=== PATIENT | female | born 1950 | race Caucasian/White ===

== ENCOUNTER 2016-07-10 10:36 | Emergency (ER) | payer OTHER, MEDICARE ==
[~2016-07-10] VITALS: Ht 157.5 cm; Wt 68.0 kg
--- NOTE | 2016-07-10 11:08 | ED GI/GU/ABDOMINAL COMPLAINT ---
History of Present Illness General Chief Complaint: Nausea, Vomiting, Diarrhea Stated Complaint: ? STOMACH BUG SENT BY PMD Source: patient Exam Limitations: no limitations Allergies Coded Allergies: No Known Allergies (07/10/16) Reconcile Medications Ascorbate Calcium (Vitamin C) 500 MG TABLET 1 TAB PO DAILY VITAMIN SUPPORT ( Reported) Aspirin (Aspirin*) 81 MG TAB.CHEW 1 TAB PO DAILY HEART HEALTH (Reported) Atorvastatin Calcium 20 MG TABLET 1 TAB PO DAILY CHOLESTEROL (Reported) Biotin 5,000 MCG TAB.RAPDIS 1 TAB PO DAILY SUPPLEMENT (Reported) Calcium Carbonate/Vitamin D3 (Caltrate 600 + D Tablet) 600 MG-800 TABLET 1 TAB PO Q48 SUPPLEMENT (Reported) Celecoxib (Celebrex) 200 MG CAPSULE 1 CAP PO DAILY PRN PAIN (Reported) Cholecalciferol (Vitamin D3) (Vitamin D3) 400 UNIT TABLET 1 TAB PO DAILY VITAMIN SUPPORT (Reported) Cyanocobalamin (Vitamin B-12) 1,000 MCG TABLET 1 TAB PO DAILY VITAMIN SUPPORT (Reported) Folic Acid 0.4 MG TABLET 2 TAB PO DAILY VITAMIN SUPPORT (Reported) Hyoscyamine (Levsin) 0.125 MG TABLET 1 TAB PO Q4 PRN ABDOMINAL SPASMS Losartan Potassium 100 MG TABLET 1 TAB PO DAILY HEART (Reported) Magnesium Oxide (Magnesium) 250 MG TABLET 1 TAB PO TID SUPPLEMENT (Reported) Multivit-Min/FA/Lycopen/Lutein (Centrum Silver Tablet) 0.4 MG-300 MCG-250 MCG TABLET 1 TAB PO DAILY VITAMIN SUPPORT (Reported) [place]-3 Fatty Acids/Fish Oil (Fish Oil 1,000 MG Capsule) 340 MG-1,000 MG CAPSULE 1 CAP PO TID SUPPLEMENT (Reported) Ondansetron (Zofran Odt) 4 MG TAB.RAPDIS 1 TAB SL TID PRN NAUSEA Soy Isofl/Blk Coh/Gr Tea/[place]erba ([employer] Caplet) 56 MG-40 MG-130 MG TABLET 1 TAB PO DAILY HORMONE REPLACEMENT (Reported) Vitamin E (Dl,Tocopheryl Acet) (Vitamin E) 400 UNIT CAPSULE 1 CAP PO DAILY VITAMIN SUPPORT (Reported) Triage Note: PT PRESENTS TO ER C/O OF GENERALIZED ABDOMINAL PAIN AND N/V SINCE LAST NIGHT. PT STATES SHE CALLED HER PMD WHO SENT HER TO ER FOR EVAL Triage Nurses Notes Reviewed? yes ? N Is pt currently ? No Onset: Gradual Duration: day(s): (1) Timing: remote history Quality/Severity: ACHY Severity Numbers: 5 Location: generalized abdomen Radiation: no radiation Activities at Onset: none No Modifying Factors: none HPI: Patient is a 66-year-old female presenting to the emergency department with chief complaint of nausea vomiting diarrhea that started yesterday evening shortly after dinner. She reports that she felt nauseous all day, they went out to dinner, she had a meatand afterwards started having nausea vomiting and diarrhea. Positive chills. Complaining of generalized abdominal discomfort and achiness. Denies any specific pain. Denies any blood in the vomit or diarrhea. She reports that she is has had "many" episodes of diarrhea and vomiting, unsure how many exactly. No sick contacts or recent travel. No recent antibiotic use. Try taking Pepto-Bismol for her symptoms but that did not help. Her last time of emesis was approximately 1 hour prior to arrival. The same with an episode of diarrhea. Denies any urinary frequency urgency or dysuria. Positive urinary hesitancy since onset of these symptoms yesterday. (DENNISE PAYTON) Vital Signs & Intake/Output Vital Signs & Intake/Output Vital Signs Date Time Temp Pulse Resp B/P B/P Pulse O2 O2 Flow FiO2 Mean Ox Delivery Rate 07/10 1414 97.9 96 16 134/63 99 Room Air 07/10 1211 97 Room Air 07/10 1045 97.9 107 20 127/69 96 Room Air Past History Travel History Traveled to [place] past 21 day No Medical History Any Pertinent Medical History? see below for history Surgical History Surgical History: non-contributory Psychosocial History Tobacco Use: Quit >30 days ago Family History Hx Contributory? No (DENNISE PAYTON) Review of Systems Review of Systems Constitutional: Reports: malaise. Comments Review of systems: See HPI, All other systems negative. Constitutional, no weight loss HEENT: No visual changes no sore throat no congestion Cardiovascular: No chest pain ,palpitation , orthopnea or ankle swelling Skin, no jaundice no rashes Respiratory: No dyspnea cough sputum or hemoptysis GI: Positive nausea, vomiting, diarrhea : No dysuria No hematuria Muscle skeletal: no back pain, no neck pain, Neurologic: No numbness no confusion, no headache Psych: No stress anxiety or depression,. Heme/endocrine: No bruising no bleeding no polyuria or polydipsia Immunology: No splenectomy or history of AIDS (DENNISE PAYTON) Physical Exam Physical Exam General Appearance: well developed/nourished, no apparent distress, alert, awake , comfortable Gastrointestinal: normal bowel sounds, soft Comments: Well-developed well-nourished person in no acute distress HEENT: Pupils equally round and reactive to light and accommodation. Nose is atraumatic. External auditory canal and Tympanic membranes clear. Pharynx normal. No swelling or edema. Slightly dry oral mucosa. Neck: Supple, no lymphadenopathy, normal range of motion without pain or tenderness Back: Nontender, no CVA tenderness. Cardiovascular: Regular rate and rhythms no murmurs rubs or gallops, normal JVP Respiratory: Chest nontender. No respiratory distress.breath sounds clear to auscultation bilaterally Abdomen: Soft, minimal diffuse tenderness with light palpation, nondistended, no appreciable organomegaly. Normal bowel sounds. No ascites. Negative Rovsing and obturator. No right lower quadrant pain to palpation. Extremity: No edema Neuro: Alert oriented x3 Skin: No appreciable rash on exposed skin, skin is warm and dry. Psych: Mood and affect is normal, memory and judgment is normal. Core Measures ACS in differential dx? No Severe Sepsis Present: No Septic Shock Present: No (MIKIE CASSIDY,DENNISE) Progress Differential Diagnosis: UTI/pyelo, GASTROENTERITIS, FOOD POISONING, ELECTROLYTE ABNORMALITY, DEHYDRATION, ACUTE KIDNEY INJURY, uti, PANCREATITIS Plan of Care: Orders Procedure Date/time Status RAPID VIRAL INFLUENZA A 07/10 1247 Complete URINALYSIS 07/10 1108 Complete LIPASE 07/10 1108 Complete COMPREHENSIVE METABOLIC PANEL 07/10 1108 Complete CBC WITHOUT DIFFERENTIAL 07/10 1108 Complete AMYLASE 07/10 1108 Complete Laboratory Tests 07/10/16 1335: Urine Color YEL, Urine Clarity CLEAR, Urine pH 7.0, Ur Specific [place] 1.015, Urine Protein NEG, Urine Ketones NEG, Urine Nitrite NEG, Urine Bilirubin NEG, Urine Urobilinogen 0.2, Ur Leukocyte Esterase NEG, Ur Microscopic EXAM NOT REQUIRED, Urine Hemoglobin NEG, Urine Glucose NEG 07/10/16 1130: Anion Gap 12, Estimated GFR > 60, BUN/Creatinine Ratio 41.7 H, Glucose 133 H, Calcium 9.8, Total Bilirubin 0.6, AST 27, ALT 39, Alkaline Phosphatase 85, Total Protein 6.9, Albumin 4.2, Globulin 2.7, Albumin/Globulin Ratio 1.6, Amylase 79, Lipase 54, CBC w Diff NO MAN DIFF REQ, RBC 4.06 L, MCV 97.7, MCH 33.4 H, RDW 12.3, MPV 7.8, Gran % 95.9 H, Lymphocytes % 2.0 L, Monocytes % 1.7, Eosinophils % 0.3, Basophils % 0.1, Absolute Granulocytes 11.6 H, Absolute Lymphocytes 0.2 L, Absolute Monocytes 0.2, Absolute Eosinophils 0, Absolute Basophils 0, PUBS MCHC 34.2 Microbiology 07/10 1303 NASOPHARYN: Influenza Virus A & B Rapid Smear - COMP Diagnostic Imaging: Viewed by Me: CT Scan. Discussed w/RAD: CT Scan. Radiology Impression: PATIENT: PAOLA LOZANO PRESENT AGE: 66 PATIENT ACCOUNT NO: [id number] : 49 LOCATION: [facility] ORDERING PHYSICIAN: DENNISE CASSIDY SERVICE DATE: 07/10/16 EXAM TYPE: CAT - CT ABD & PELVIS W IV CONTRAST EXAMINATION: CT ABDOMEN AND PELVIS WITH CONTRAST CLINICAL INFORMATION: Nausea, vomiting and diarrhea. Abdominal pain. COMPARISON: CT abdomen and pelvis 07/19/2014. TECHNIQUE: Multidetector volumetric imaging was performed of the abdomen and pelvis before and after the IV administration of 94 mL of Optiray 320 intravenous contrast. Sagittal and coronal reformatted images were obtained on the technologist's workstation. DLP: 282 mGy-cm FINDINGS: LUNG BASES: No acute process seen in the lung bases. A 3.5 mm pulmonary nodule suspected right lower lobe, image 4 series 5. LIVER, GALLBLADDER, AND BILIARY TREE: The liver is mildly enlarged but normal shape, and attenuation. No focal hepatic lesion or biliary ductal dilatation is present. The gallbladder is unremarkable with no evidence of radiopaque gallstones, gallbladder wall thickening, or obvious pericholecystic inflammatory changes. PANCREAS: Unremarkable. SPLEEN: Unremarkable. ADRENAL GLANDS: Unremarkable. KIDNEYS AND URETERS: The kidneys are normal in size, shape, and attenuation. No hydronephrosis, hydroureter, or calculi seen. No perinephric stranding. BLADDER: Unremarkable. GASTROINTESTINAL TRACT: There is scattered stool seen throughout the colon without distention. The small bowel loops are unremarkable. Appendix is not visualized. No free air or free fluid seen. ABDOMINAL WALL: There is no abdominal wall hernia or soft tissue abnormality. LYMPH NODES: Normal. VASCULAR: Unremarkable. PELVIC VISCERA: There is no free fluid or free air seen. The prostate gland and the seminal vesicles are normal. OSSEOUS STRUCTURES: No lytic or sclerotic process seen. There are degenerative disc changes and spondylosis throughout the dorsal spine. There is mild dextroscoliosis of lower dorsal spine. IMPRESSION: No acute intra-abdominal process seen. Mild hepatomegaly. DICTATED BY: CAROLYNN DE LA ROSA,AYAN DATE/TIME DICTATED :07/10/161418 Initial ED EKG: none Comments: 07/10/2016 12:08:26 PM arrival patient's vitals are stable. She is well- appearing. Minimal tenderness on abdominal exam. Likely viral related, cannot exclude food poisoning as she didn't experience worsening symptoms after going out to eat. We will hydrate patient with fluids, IV Zofran for nausea. Also CBC, CMP immunize and lipase. We'll also obtain urinalysis. We will reassessments patient has been medicated. 07/10/2016 1:25:41 PM and reevaluation patient feeling no improvement. Still complaining about abdominal discomfort. Patient concern for intra-abdominal process, thinks she may need a CAT scan to see was going on. Patient has not had any episodes of diarrhea or vomiting since arriving at the emergency department. More IV fluids initiated. Patient will go for CT. Patient requesting some tania oliva. She does have a small white count and left shift. Her lymphocytes are also low. This could be attributed from a viral process. Also sent off flu swab 07/10/2016 3:44:28 PM still awaiting CAT scan results. Spoke with Dr. Person. As long as CAT scan comes back okay patient will be discharged home with symptomatic treatment. 07/10/2016 3:59:38 PM received CAT scan reading. Patient will follow up with PCP. Likely viral in nature. Patient treated symptomatically. All questions answered. (MIKIE CASSIDY,DENNISE) Departure Departure Time of Disposition: 6 Disposition: HOME OR SELF CARE Condition: Stable Clinical Impression Primary Impression: Abdominal pain Qualifiers: Abdominal location: generalized Qualified Code: R10.84 - Generalized abdominal pain Secondary Impressions: Diarrhea Qualifiers: Diarrhea type: unspecified type Qualified Code: R19.7 - Diarrhea, unspecified Nausea and vomiting Qualifiers: Vomiting type: unspecified Vomiting Intractability: non-intractable Qualified Code: R11.2 - Nausea with vomiting, unspecified Referrals: JOSEFINA PERSON MD (PCP/Family) Additional Instructions: Follow-up with your primary care physician call to make an appointment. Increase fluids. Use Zofran as prescribed up with nausea. Use Levsin help with abdominal discomfort. Slowly increase diet. Return for worsening symptoms or concerns. Departure Forms: Customer Survey General Discharge Information Prescriptions: Current Visit Scripts Ondansetron (Zofran Odt) 1 TAB SL TID PRN NAUSEA #10 TAB Hyoscyamine (Levsin) 1 TAB PO Q4 PRN ABDOMINAL SPASMS #20 TAB (DENNISE PAYTON) PA/DECAL MAKER Co-Sign Statement Statement: ED Attending supervision documentation- [X] I saw and evaluated the patient. I have also reviewed all the pertinent lab results and diagnostic results. I agree with the findings and the plan of care as documented in the PA's/DECAL MAKER's documentation. [] I have reviewed the ED Record and agree with the PA's/DECAL MAKER's documentation. [] Additions or exceptions (if any) to the PAs/DECAL MAKER's note and plan are summarized below: [] (CHARI VAZQUEZ DO
[2016-07-10] MEDS ORDERED: VITAMIN E400 UNI1 PO (11:34)
[2016-07-10] MEDS ORDERED: VITAMIN C500 M6 PO (11:35)
[2016-07-10] MEDS ORDERED: CENTRUM SILVER1 EAC3 PO (11:35)
[2016-07-10] MEDS ORDERED: VITAMIN B-121000 MC3 PO (11:36)
[2016-07-10] MEDS ORDERED: VITAMIN D3400 UNI1 PO (11:36)
[2016-07-10] MEDS ORDERED: FISH OIL 1,0001 EACH PO (11:37)
[2016-07-10] MEDS ORDERED: BIOTIN5000 MCG PO (11:37)
[2016-07-10] MEDS ORDERED: FOLIC ACID0.4 M1 PO (11:37)
[2016-07-10] MEDS ORDERED: ASPIRIN81 M4 PO (11:38)
[2016-07-10] MEDS ORDERED: MAGNESIUM250 M2 PO (11:38)
[2016-07-10] MEDS ORDERED: CALTRATE 600 +1 EACH PO (11:39)
[2016-07-10] MEDS ORDERED: ESTROVEN ENERG1 EACH PO (11:40)
[2016-07-10 11:41] LABS: ABSOLUTE BASOPHIL COUNT 0 /CUMM (0.0-0.2); ABSOLUTE EOSINOPHIL COUNT 0 /CUMM (0.0-0.7); ABSOLUTE GRANULOCYTE CT 11.6 /CUMM (1.4-6.5); ABSOLUTE LYMPH COUNT 0.2 /CUMM (1.2-3.4); ABSOLUTE MONOCYTE COUNT 0.2 /CUMM (0.10-0.60); BASOPHIL % 0.1 % (0.0-2.0); EOSINOPHIL % 0.3 % (0-5); HEMATOCRIT 39.7 % (37-47); MEAN CORPUSCULAR HGB 33.4 PG (27.0-31.0); MEAN CORPUSCULAR HGB CONC 34.2 G/DL (33.0-37.0); MEAN CORPUSCULAR VOLUME 97.7 FL (81.0-99.0); MEAN PLATELET VOLUME 7.8 FL (7.4-10.4); RBC DISTRIBUTION WIDTH 12.3 % (11.5-14.5); RED BLOOD CELL CT 4.06 /CUMM (4.20-5.40); WHITE BLOOD CELL COUNT 12.1 /CUMM (4.8-10.8)
[2016-07-10] MEDS ORDERED: ATORVASTATIN CA20 M1 PO (11:41)
[2016-07-10] MEDS ORDERED: LOSARTAN POTAS100 M1 PO (11:41)
[2016-07-10] MEDS ORDERED: CELEBREX200 M1 PO (11:42)
[2016-07-10 12:17] LABS: PLATELET COUNT 284 /CUMM (130-400)
[2016-07-10 12:18] LABS: GRANULOCYTE % 95.9 % (42.2-75.2)
[2016-07-10 14:14] VITALS: BP 134/63
--- NOTE | 2016-07-10 15:53 | CT SCAN REPORT ---
EXAMINATION: CT ABDOMEN AND PELVIS WITH CONTRAST CLINICAL INFORMATION: Nausea, vomiting and diarrhea. Abdominal pain. COMPARISON: CT abdomen and pelvis 07/19/2014. TECHNIQUE: Multidetector volumetric imaging was performed of the abdomen and pelvis before and after the IV administration of 94 mL of Optiray 320 intravenous contrast. Sagittal and coronal reformatted images were obtained on the technologist's workstation. DLP: 282 mGy-cm FINDINGS: LUNG BASES: No acute process seen in the lung bases. A 3.5 mm pulmonary nodule suspected right lower lobe, image 4 series 5. LIVER, GALLBLADDER, AND BILIARY TREE: The liver is mildly enlarged but normal shape, and attenuation. No focal hepatic lesion or biliary ductal dilatation is present. The gallbladder is unremarkable with no evidence of radiopaque gallstones, gallbladder wall thickening, or obvious pericholecystic inflammatory changes. PANCREAS: Unremarkable. SPLEEN: Unremarkable. ADRENAL GLANDS: Unremarkable. KIDNEYS AND URETERS: The kidneys are normal in size, shape, and attenuation. No hydronephrosis, hydroureter, or calculi seen. No perinephric stranding. BLADDER: Unremarkable. GASTROINTESTINAL TRACT: There is scattered stool seen throughout the colon without distention. The small bowel loops are unremarkable. Appendix is not visualized. No free air or free fluid seen. ABDOMINAL WALL: There is no abdominal wall hernia or soft tissue abnormality. LYMPH NODES: Normal. VASCULAR: Unremarkable. PELVIC VISCERA: There is no free fluid or free air seen. The prostate gland and the seminal vesicles are normal. OSSEOUS STRUCTURES: No lytic or sclerotic process seen. There are degenerative disc changes and spondylosis throughout the dorsal spine. There is mild dextroscoliosis of lower dorsal spine. IMPRESSION: No acute intra-abdominal process seen. Mild hepatomegaly.
[2016-07-10] MEDS ORDERED: LEVSIN0.125 M1 PO (15:58)
[2016-07-10] MEDS ORDERED: ZOFRAN ODT4 M1 SL (15:58)
== END 2016-07-10 16:13 ==
LOC: ERH 10:36
PROVIDERS: Physician Assistant
DX: R10.84 Generalized abdominal pain (principal); R19.7 Diarrhea, unspecified; R11.2 Nausea with vomiting, unspecified
CPT/HCPCS: 74177; 81003; 87804; 87804-59; 96361; 96374; J2405